=== PATIENT | female | born 1970 | race Caucasian/White ===

== ENCOUNTER 2025-02-12 12:55 | Outpatient (CLI) | payer OTHER, SELFPAY ==
--- OUTSIDE RECORDS SUMMARY | 2025-02-12 13:00 | XMS_ITS | Data Portability ---
Author Organization [facility] ANN MARIEErrol Address [address] [place] [address] Care Team Providers Care Recycling Director Name Role Phone FAM ALEXANDER Primary Care Provider Assessment Encounter Date Assessment Date Assessment LastModified by Organization Details LastModified Time 11/13/2024 11/13/2024 Labs completed 11/11/2024 Triglycerides 117, Cholesterol 136, HDL 56, LDL 59, CK 38, Sodium 141, Potassium 4.6, Chloride 102, Co2 26, BUN 23, Creatinine 1.55, eGFR 39, Glucose 95, Calcium 9.8, Bilirubin 0.5, AST 16, ALT 19, Protein 7.8, Albumin 4.4, ALk phos 87 Labs completed 10/03/2024 WBC 6.1, Hgb 13.5, Hct 41.5, Plt 203 Labs completed on 02/27/2024 Sodium 140, Potassium 4.6, Chloride 102, Co2 28, BUN 20, Creatinine 1.24, Glucose 92, Calcium 9.4, Albumin 4.2, WBC 6.2, Hgb 14.6, Platelets 191, HgbA1C 5.6 Labs completed on 12/18/2023 Cholesterol 195, Trig 116, HDL 42, LDL 132 ECG done on 03/20/2024 shows sinus rhythm with a rate of 73 beats per minute, left atrial enlargement, IVCD ASSESSMENT History of coronary artery disease status post coronary artery stent in November of 2021 in [facility] with a normal Lexiscan Myoview stress test done on 06/11/2024. Dyspnea on exertion with moderate activity With a normal Lexiscan Myoview stress test performed on 05/11/2024. Essential hypertension, controlled History of thoracic aortic dissection status post repair in 2020 in [place] Diastolic dysfunction grade 1. Trace to mild pulmonic valvular regurgitation by echocardiogram done on 04/02/2024 Aortic sclerosis without significant stenosis on echocardiogram done on 04/02/2024 Mitral sclerosis, moderate without significant stenosis on echocardiogram done on 04/02/2024 Chronic kidney disease followed by Nephrology. Occasional Cannabis use Reformed smoker smoked one - two ppd and quit about 2 years ago pure hypercholesterolem ia, on rosuvastatin 20 mg daily with LDL at goal as her goal LDL is to be under 70 mg/dL in light of CAD Peripheral neuropathy in her right leg so she can not walk on a treadmill. History of angioedema with lisinopril so I will avoid ASCENCION inhibitors and ARBs PLAN: I recommend she follow a low-fat low-sodium low-cholesterol diet. I asked her to try to exercise regularly and try to lose some weight. I am still trying to get a copy of her surgical report for her repair of her dissection in July of 2021 I and a copy of her catheterization report from [facility] from November of 2021 to see if she had an aortic stent graft or had a coronary stent I asked her to continue on rosuvastatin 20 mg daily, amlodipine 5 mg daily, carvedilol 6.25 mg twice daily and aspirin 81 mg daily. I would like her to return in 6 months' time in obtain a fasting lipid profile, complete metabolic profile and a CBC prior to her follow-up visit. I asked her to return sooner if she has any cardiac issues or problems. CARDIAC TESTING: ECHOCARDIOGRAM 04/02/24. Mildly dilated left atrium. Osjl-rr-dnvhtuth concentric left ventricular hypertrophy. LV ejection fraction, visually, 60 65%. Diastolic dysfunction grade 1. Resting segmental wall motion annulus total wall motion score is 1.00 there is no regional wall motion abnormalities. Normal right ventricular size and systolic function. Moderate mitral annular calcification. There is no evidence of mitral valve prolapse. There is no evidence of mitral valve stenosis. The mean transmitral gradient is 1 mmHg. Aortic valve not well visualized. Aortic cusp appears mildly calcified. Mild aortic valve regurgitation. There is no evidence of aortic valve stenosis. Trace to mild pulmonic valvular regurgitation. Trace anterior echo-free space, Most likely represents a fat pad can not exclude a trivial pericardial effusion. The IVC was<2.1 cm and collapsibility.50 %. The RA pressure is estimated to be 3 mmHg. ECHOCARDIOGRAM 08/12/2019 left ventricular cavity size is within normal limits ejection fraction visually estimated at 55%, severe eccentric left ventricular hypertrophy, no regional wall motion abnormalities, diastolic dysfunction grade 1 LEXISCAN MYOVIEW STRESS TEST 06/11/2024, no regadenoson induced ischemic EKG changes, no arrhythmias, study as well tolerated, blood pressure was elevated but patient did not take her medicines that day. Her Myoview images showed no evidence of ischemia or infarction of the left ventricle, normal left ventricular cavity size, normal wall motion, normal TID index and calculated left ventricular systolic ejection fraction of 55%. Not available 11/13/2024 14:50:02 Plan of Treatment Reminders Order Date Submit Date Provider Last Modified By Organization Details Last Modified Time Details Appointments ANY 15 2024 01:15P Krysta Chaidez MD Not available Not available Not available Lab unlisted lab - vitamin D, 25-hydrox y 2024 025 [email or web address] [facility] ([facility]), [address] [place], [address], 11/26/2024 16:00:53 unlisted lab - vitamin D, 25-hydrox y 2024 025 [email or web address] [facility] ([facility]), [address] [facility], [place], [address], 01/30/2025 16:48:47 CBC 2024 025 [email or web address] [facility] ([facility]), [address] [place], [address], 11/26/2024 16:00:53 CMP, serum or plasma 2024 025 [email or web address] [facility] (Lab), [address] [place], [address], 11/26/2024 16:00:53 phosphoru s, serum or plasma 2024 025 [email or web address] [facility] ([facility]), [address] [place], [address], 11/26/2024 16:00:53 PTH (parathyr oid hormone), intact + calcium, serum or plasma 2024 025 [email or web address] [facility] (Lab), [address] [place], [address], 11/26/2024 16:06:38 lipid panel, serum 2024 025 [email or web address] [facility] (Lab), [address] [place], [address], 11/13/2024 14:50:03 CMP, serum or plasma 2024 025 [email or web address] [facility] ([facility]), [address] [place], [address], 11/13/2024 14:50:03 CBC w/ auto diff 2024 025 [email or web address] [facility] ([facility]), [address] [place], [address], 11/13/2024 14:50:[address] referral 2024 025 [facility] (Audiology), [facility] [address], [address], 01/27/2025 18:27:14 dermatolo gist referral 2024 025 [facility], [address] [place], [address], 01/24/2025 12:10:31 physical therapist referral 2024 025 [facility], [address], [place], [address], 12/17/2024 14:02:19 otolaryng ologist referral [email or web address] [place] [address], [address], [place], [address], 12/11/2024 15:54:[address] referral 2024 025 [email or web address] [facility] (Audiology), [address], [place], [address], 12/11/2024 15:54:56 intensive outpatien t therapy program referral [address] (Social Serv), [address] [place], [address], 12/11/2024 16:00:49 Procedures None recorded. Surgeries None recorded. Imaging MAMMO, screening , bilateral [email or web address] [place] [address] (Cardio Ekg), [address] [place], [address], 02/06/2025 09:12:57 Medication Orders lidocaine 5 % topical patch 2024 025 [facility] [id number], [address], 12/11/2024 15:54:22 clobetaso l 0.05 % topical ointment 2024 025 [facility] [address], [address], 12/11/2024 15:54:23 ergocalci ferol (vitamin D2) 1,250 mcg (50,000 unit) capsule 2024 025 [facility] [id number], [address], 11/26/2024 16:05:47 carvedilo l 12.5 mg tablet 2024 025 [facility] [address], [address], 11/26/2024 16:16:41 amlodipin e 10 mg tablet 2024 025 [facility] [address] In [facility], [address] [facility], [place], [address], 11/26/2024 16:16:41 Patient TargetsNo targets recorded. Patient Instructions Encounter Date Encounter Id Patient Instructions Last Modified By Organization Details Last Modified Time 11/13/2024 [id number] A healthy lifestyle: care instructions Not available 11/13/2024 14:50:03 12/11/2024 [id number] A healthy lifestyle: care instructions Not available 12/11/2024 15:54:20 01/21/2025 [id number] A healthy lifestyle: care instructions Not available 01/21/2025 16:36:59 Reason for Referral Brick Pitcher Referral fo r Hearing loss of right ear Referring Physician: Alexander Larios [facility], Encounter Date: 12/11/2024 Review Coordinator Referral for Hea ring loss of right ear Referring Physician: Alexander Larios [facility], Encounter Date: 12/11/2024 Physical Therapist Referral for Chronic low back pain Referring Physician: Alexander Larios [facility], Encounter Date: 12/11/2024 Intensive Outpatient Therapy Program Referral for Generalized anxiety disorder Referring Physician: Alexander Larios [facility], Encounter Date: 12/11/2024 Office Service Coordinator Referral for P soriasis Referring Physician: Alexander Larios [facility], Encounter Date: 01/21/2025 Review Coordinator Referral for Asy mmetrical hearing loss Referring Physician: Amarjit Moreno Otolaryngology, Encounter Date: 01/27/2025 Results Created Date Observation Date Name Description Value Unit Range Abnormal Flag Note LastModifiedBy Organization Detail LastModifiedTime 11/12/19 25 11/11/2024 COMPR EHENS JOSE METAB OLIC PANEL sodium 141 mmol/ L 134-14 4 normal Not Available [facility] (Lab) [address] [place], [address], 11/11/2024 22:47:50 11/12/19 25 11/11/2024 COMPR EHENS JOSE METAB OLIC PANEL potassium 4.6 mmol/ L 3.5-5. 2 normal Not Available [facility] ([facility]) [address] [place], [address], 11/11/2024 22:47:50 11/12/19 25 11/11/2024 COMPR EHENS JOSE METAB OLIC PANEL chloride 102 mmol/ L 96-106 normal Not Available [facility] (Lab) [address] [place], [address], 11/11/2024 22:47:50 11/12/19 25 11/11/2024 COMPR EHENS JOSE METAB OLIC PANEL carbon dioxide 26 mmol/ L 20-29 normal Not Available [facility] (Lab) [address] [place], [address], 11/11/2024 22:47:50 11/12/19 25 11/11/2024 COMPR EHENS JOSE METAB OLIC PANEL anion gap 17.0 mmol/ L Not Available [facility] (Lab) [address], [place], [address], 11/11/2024 22:47:50 11/12/19 25 11/11/2024 COMPR EHENS JOSE METAB OLIC PANEL blood urea nitrogen 23 mg/dL 6-24 normal Not Available [facility] ([facility]) [address] [place], [address], 11/11/2024 22:47:50 11/12/19 25 11/11/2024 COMPR EHENS JOSE METAB OLIC PANEL creatinine 1.55 mg/dL 0.76-1 .27 high Not Available [facility] (Lab) [address] [place], [address], 11/11/2024 22:47:50 11/12/19 25 11/11/2024 COMPR EHENS JOSE METAB OLIC PANEL glomerular filtration rate 39 mL/mi n/1 Not Available [facility] (Lab) [address] [place], [address], 11/11/2024 22:47:50 11/12/19 25 11/11/2024 COMPR EHENS JOSE METAB OLIC PANEL BUN creatinine ratio 15 9-23 normal Not Available [facility] (Lab) [address] [place], [address], 11/11/2024 22:47:50 11/12/19 25 11/11/2024 COMPR EHENS JOSE METAB OLIC PANEL glucose 95 mg/dL 70-99 normal Not Available [facility] (Lab) [address] [place], [address], 11/11/2024 22:47:50 11/12/19 25 11/11/2024 COMPR EHENS JOSE METAB OLIC PANEL osmolality calculated 285 275-29 5 normal Not Available [facility] (Lab) [address] [facility], [place], [address], 11/11/2024 22:47:50 11/12/19 25 11/11/2024 COMPR EHENS JOSE METAB OLIC PANEL calcium 9.8 mg/dL 8.7-10 .2 normal Not Available [facility] (Lab) [address] [place], [address], 11/11/2024 22:47:50 11/12/19 25 11/11/2024 COMPR EHENS JOSE METAB OLIC PANEL bilirubin total 0.5 mg/dL 0.0-1. 2 normal Not Available [facility] (Lab) [address] [place], [address], 11/11/2024 22:47:50 11/12/19 25 11/11/2024 COMPR EHENS JOSE METAB OLIC PANEL AST aspartate aminotransfe rase 16 U/L 0-40 normal Not Available [facility] (Lab) [address] [place], [address], 11/11/2024 22:47:50 11/12/19 25 11/11/2024 COMPR EHENS JOSE METAB OLIC PANEL ALT (alanine aminotransfe rase) 19 IU/L 0-32 normal Not Available [facility] (Lab) [address], [place], [address], 11/11/2024 22:47:50 11/12/19 25 11/11/2024 COMPR EHENS JOSE METAB OLIC PANEL total protein 7.8 g/dL 6.0-8. 5 normal Not Available [facility] (Lab) [address], [place], [address], 11/11/2024 22:47:50 11/12/19 25 11/11/2024 COMPR EHENS JOSE METAB OLIC PANEL albumin level 4.4 g/dL 3.8-4. 9 normal Not Available [facility] (Lab) [address], [place], [address], 11/11/2024 22:47:50 11/12/19 25 11/11/2024 COMPR EHENS JOSE METAB OLIC PANEL globulin 3.4 g/dL 1.5-4. 5 normal Not Available [facility] (Lab) [address], [place], [address], 11/11/2024 22:47:50 11/12/19 25 11/11/2024 COMPR EHENS JOSE METAB OLIC PANEL albumin globulin ratio 1.0 1.2-2. 2 low Not Available [facility] (Lab) [address] [place], [address], 11/11/2024 22:47:50 11/12/19 25 11/11/2024 COMPR EHENS JOSE METAB OLIC PANEL alkaline phosphatase 87 IU/L 44-121 normal Not Available [facility] (Lab) [address] [place], [address], 11/11/2024 22:47:50 11/12/19 25 11/11/2024 COMPR EHENS JOSE METAB OLIC PANEL hemolysis 6 0-19 Not Available [facility] (Lab) [address] [place], [address], 11/11/2024 22:47:50 11/12/19 25 11/11/2024 COMPR EHENS JOSE METAB OLIC PANEL icterus 1 0.5-4. 9 Not Available [facility] ([facility]) [address] [place], [address], 11/11/2024 22:47:50 11/12/19 25 11/11/2024 COMPR EHENS JOSE METAB OLIC PANEL lipemia 13 0-99 Not Available [facility] ([facility]) [address] [place], [address], 11/11/2024 22:47:50 11/12/19 25 11/11/2024 CREAT INE KINAS E creatine kinase 38 U/L 32-182 normal Not Available [facility] ([facility]) [address] [place], [address], 11/11/2024 22:47:51 11/12/19 25 11/11/2024 LIPID PANEL triglyceride s 117 mg/dL 0-149 normal Not Available [facility] ([facility]) [address] [facility], [place], [address], 11/11/2024 22:47:52 11/12/19 25 11/11/2024 LIPID PANEL cholesterol 136 mg/dL 100-19 9 normal Not Available [facility] (Lab) [address] [place], [address], 11/11/2024 22:47:52 11/12/19 25 11/11/2024 LIPID PANEL LDL cholesterol 59 mg/dL 0-99 normal Not Available [facility] ([facility]) [address] [place], [address], 11/11/2024 22:47:52 11/12/19 25 11/11/2024 LIPID PANEL VLDL cholesterol (calc) 23 mg/dL 5-40 normal Not Available [facility] ([facility]) [address] [facility], [place], [address], 11/11/2024 22:47:52 11/12/19 25 11/11/2024 LIPID PANEL HDL cholesterol 56 mg/dL 40-999 normal Not Available [facility]) [address] [facility], [place], [address], 11/11/2024 22:47:52 11/12/19 25 11/11/2024 LIPID PANEL LDL HDL ratio 1.1 0-3.2 normal Not Available [facility]) [address] [facility], [place], [address], 11/11/2024 22:47:52 11/12/19 25 11/11/2024 LIPID PANEL chol HDL ratio 2.0 mg/dL 0-4.4 normal Not Available [facility] ([facility]) [address] [place], [address], 11/11/2024 22:47:52 11/27/19 25 11/26/2024 XR, chest , 2 view No observ ation record ed. [facility] [address] [place], [address], 11/27/2024 10:18:03 11/27/19 25 11/26/2024 CT, angio gram, chest , w/o contr ast No observ ation record ed. [facility] [address] [facility], [place], [address], 11/27/2024 10:17:37 11/29/19 25 11/26/2024 rhyth m strip , EKG* No observ ation record ed. [email or web address] [facility] [address] [place], [address], 12/03/2024 15:50:58 Result Notes None recorded. Problems Name Problem SNOMED Code Status Onset Date Resolution Date Notes Provider Name and Address Organization Details Recorded Time Essential hypertensio n 73472496 Active 2023 Francesco Rosa MD Attn: Michael heart,[address] [facility], [place], [address], [place] - [facility] 4 16:36:52 Aneurysm 801511860 Active 2023 Francesco Rosa MD Attn: Michael heart,[address] [facility], [place], [address], [place] [facility] 4 16:38:22 History of repair of dissecting thoracic aortic aneurysm 1823610328730 05 Active 2023 Darcy Chaidez MD Attn: Michael heart,[address] [facility], [place], [address], [place] [facility] 4 10:05:22 Vitamin D deficiency 94524416 Active 2023 Alexander Larios PA-C Attn: Marcellalynda heart,[address] [facility], [place], [address], [place] [facility] 4 14:45:01 Generalized anxiety disorder 02622989 Active 2023 Alexander Larios PA-C Attn: Michael heart,[address] [facility], [place], [address], [place] [facility] 5 16:00:16 Diastolic dysfunction 3503327 Active 2023 Alexander Larios PA-C Attn: Michael heart,[address] [facility], [place], [address], [place] [facility] 4 14:49:58 Dyspnea on exertion 09670996 Active 2023 Darcy Chaidez MD Attn: Marcellalynda heart,[address] [facility], [place], [address], [place] [facility] 4 10:28:33 Pulmonic valve regurgitati on 15540022 Active 2023 Darcy Chaidez MD Attn: Michael una,[address] [facility], [place], [address], [place] [facility] 4 10:28:34 Mitral valve annular calcificati on 618077952 Active 2023 Darcy Chaidez MD Attn: Michael heart,[address] [facility], [place], [address], [facility] - [facility] 4 10:28:34 Aortic valve sclerosis 92478562 Active 2023 Darcy Chaidez MD Attn: Michael heart,[address] [facility], [place], [address], [facility] - [facility] 4 10:28:35 Pure hypercholes terolemia 790567440 Active 2023 Darcy Chaidez MD Attn: Michael heart,[address] [facility], [place], [address], [facility] - [facility] 4 11:07:17 Psoriasis 8235057 Active 2024 Alexander Larios PA-C Attn: Michael heart,[address] [facility], [place], [address], [facility] - [facility] 5 15:42:01 Problem Notes None recorded. Procedures Surgical History Date Name Laterality Status Provider Name and Address Organization Details Recorded Time 12/06/19 21 aneurysmectomy with graft replacement of thoracic artery completed VERONA ORR DO Attn: Accounting,[address] [facility], [place], [address], [facility] - SI 12/15/2023 14:28:25 12/05/18 97 section completed VERONA ORR DO Attn: Accounting,[address] [facility], [place], [address], [facility] - [facility] 12/15/2023 14:26:58 12/05/18 92 section completed VERONA ORR DO Attn: Accounting,[address] [facility], [place], [address], [facility] - [facility] 12/15/2023 14:26:40 12/05/18 88 arthroplasty of knee completed VERONA ORR DO Attn: Accounting,[address] [facility], [place], [address], [facility] - SI 12/15/2023 14:27:16 Imaging Results None recorded. Procedure Notes None recorded. Medical Equipment None Reported. Allergies Allergen ID Allergen Name Allergen Category Reaction Reaction Severity Criticality Documentation Date Start Date Code Code System Note Provider Name and Address Organization Details Recorded Time 759533 heparin medicatio n Not available Not available [facility] 12/15/2023 5224 RxNorm HIT VERONA DO KIRBY Attn: Accountin g,[address] [facility], [place], [address], [place] - [facility] 4 14:23:59 035668 Product containin g angiotens in-conver ting enzyme inhibitor (product) medicatio n angioedem a severe high 12/15/2023 34782 009 SNOMED VERONA ORR DO Attn: Accountin g,[address] [facility], [place], [address], [facility] - SI 4 14:24:25 392729 lisinopri l medicatio n Not available Not available Not available 01/30/2024 34376 RxNorm Hans Couch MA null, [place] - [place] 4 16:27:00 826832 Product containin g penicilli n (product) medicatio n Not available Not available Not available 01/30/2024 05545 8001 SNOMED ONEAL [place], [place] - [facility] 4 16:27:07 Medications Name Sig Start Date Stop Date Status Note LastModified by Organization Details LastModified Time Miralax 17 gram/dose oral powder In a pitcher, mix entire bottle of Miralax in one 64 ounce bottle of yellow or green Gatorade. Beginning at 5:00 PM the evening before the colonosco py, drink 1 8-ounce glass every 15 minutes until completed . Drink 4 glasses of water after finishing this mixture 11/13 completed Not Available Not Available Not Available clonidine HCl 0.1 mg tablet TAKE 1 TABLET 3 TIMES A DAY BY ORAL ROUTE. active Not Available Not Available No t Available carvedilol 6.25 mg tablet TAKE 1 TABLET BY MOUTH TWICE A DAY active Not Available Not Available No t Available doxycycline hyclate 100 mg capsule TAKE 1 CAPSULE BY MOUTH TWICE A DAY FOR 7 DAYS 11/13 completed Not Available Not Available Not Available carvedilol 12.5 mg tablet TAKE 1 TABLET TWICE A DAY BY ORAL ROUTE FOR 90 DAYS. active Not Available Not Available No t Available cetirizine 10 mg tablet TAKE 1 TABLET BY MOUTH EVERY DAY active Not Available Not Available No t Available amlodipine 5 mg tablet TAKE 1 TABLET BY MOUTH EVERY DAY 11/27 completed Not Available Not Available Not Available nifedipine ER 60 mg tablet,exte nded release 24 hr Take 1 tablet every day by oral route. 03/20 completed Not Available Not Available Not Available amlodipine 10 mg tablet TAKE 1 TABLET BY MOUTH EVERY DAY IN THE EVENING FOR 90 DAYS active Not Available Not Available No t Available lidocaine 5 % topical patch APPLY 1 PATCH BY TOPICAL ROUTE ONCE DAILY (MAY WEAR UP TO 12HOURS.) active Not Available Not Available No t Available hydroxyzine HCl 25 mg tablet TAKE 1 TABLET BY MOUTH THREE TIMES A DAY 2024 active Not Available Not Available Not Avai lable ergocalcife rol (vitamin D2) 1,250 mcg (50,000 unit) capsule TAKE 1 CAPSULE BY MOUTH ONCE A MONTH IN THE MORNING X90 DAYS SUPPLY active Not Available Not Available No t Available clobetasol 0.05 % topical ointment APPLY THIN COAT TO AFFECTED AREA TWICE A DAY active Not Available Not Available No t Available hydroxyzine HCl 10 mg tablet TAKE 1 TABLET 3 TIMES A DAY BY ORAL ROUTE NEEDED. 04/23 completed Not Available Not Available Not Available fluoxetine 20 mg capsule TAKE 1 CAPSULE BY MOUTH EVERY DAY 03/20 completed Not Available Not Available Not Available fluticasone propionate 50 mcg/actuati on nasal spray,suspe nsion INSTILL 2 SPRAYS BY INTRANASA L ROUTE EVERY DAY active Not Available Not Available No t Available betamethaso ne dipropionat e 0.05 % lotion APPLY A FEW DROPS TO AFFECTED AREA, RUB IN GENTLY AND COMPLETEL Y, 2 TIMES A DAY MORNING AND BEDTIME 2024 active Not Available Not Available Not Avai lable Laxative (bisacodyl) 5 mg tablet,tameka yed release TAKE ALL 4 TABLETS AT 2PM OF DULCOLAX BY MOUTH AT ONE TIME WITH 8 OUNCES OF WATER 11/13 completed Not Available Not Available Not Available rosuvastati n 20 mg tablet TAKE 1 TABLET BY MOUTH EVERY DAY active Not Available Not Available No t Available aspirin One tab qd active Not Available Not Available No t Available Vitals Date Recorded Body height Body mass index (BMI) Body weight Heart rate Oxygen saturation Oxygen saturation in Arterial blood by Pulse oximetry Systolic And Diastolic Provider Name and Address Organization Details Last Updated DateTime 5 157.48 cm 39.7 kg/m2 04776.5 4 g 77 /min 97 % 97 % 126/74 mm[Hg] Abhishek Singer MA [facility] 14:19:16 Date Recorded Body height Oxygen saturation Oxygen saturation in Arterial blood by Pulse oximetry Heart rate Respiratory rate Body mass index (BMI) Body weight Provider Name and Address Organization Details Last Updated DateTime 5 157.48 cm 89 % 89 % 71 /min 20 /min 40.9 kg/m2 417982. 97 g Francesco Rosa MD Attn: Michael heart,[address] [place], [address], [facility] 5 15:07:54 Date Recorded Body height Body mass index (BMI) Body weight Oxygen saturation Oxygen saturation in Arterial blood by Pulse oximetry Heart rate Respiratory rate Body temperature Systolic And Diastolic Provider Name and Address Organization Details Last Updated DateTime 5 157.48 cm 41.4 kg/m2 282707. 28 g 97 % 97 % 74 /min 20 /min 97.4 [degF] 124/80 mm[Hg] Blanca Obando MA [facility] 5 15:34:43 Date Recorded Body height Provider Name an d Address Organization Details Last Updated DateTime 01/21/2025 157.48 cm Blanca Obando MA [facility] 01/21 12:27:27 Date Recorded Body height Body mass index (BMI) Body weight Heart rate Respiratory rate Body temperature Systolic And Diastolic Provider Name and Address Organization Details Last Updated DateTime 5 157.48 cm 41.9 kg/m2 328874. 29 g 74 /min 16 /min 98.4 [degF] 99/67 mm[Hg] Sara Giles MA [facility] 12:39:11 Social History Question Answer Notes LastModified by Organizat ion Details LastModified Time Tobacco Smoking Status Former Smoker cigars Ivan[place] 03/20/2024 09:13:53 Do You Have An Advance Directive? No Information n ot available 01/30/2024 What Is Your Level Of Caffeine Consumption? None Information not available 03/20/2024 In The 14 Days Before Symptom Onset, Have You Had Close Contact With A Laboratory-confirm ed COVID-19 While That Case Was Ill? No Information n ot available 10/03/2024 In The 14 Days Before Symptom Onset, Have You Had Close Contact With A Person Who Is Under Investigation For COVID-19 While That Person Was Ill? No Information not available 10/03/2024 Have You Been To An Area Known To Be High Risk For COVID-19? No Information not available 10/03/2024 What Type Of Diet Are You Following? DIABETIC Information n ot available 10/03/2024 What Is The Highest Grade Or Level Of School You Have Completed Or The Highest Degree You Have Received? [id number] Information not available 10/03/2024 Do You Have A Medical Power Of [place] Room Worker? No Information not available 01/30/2024 What Was The Date Of Your Most Recent Tobacco Screening? 11/13/2024 [email or web address] Information not available 11/13/2024 What Is Your Current Pack Years? 10packyears Information not available 03/20/2024 Do You Have Smoke And Carbon Monoxide Detectors In Your Home? Yes Information not available 10/03/2024 At What Age Did You Start Smoking Tobacco? 11 Information not available 03/20/2024 Are You Passively Exposed To Smoke? No Information no t available 10/03/2024 How Much Tobacco Do You Smoke? No Information not available 03/20/2024 On What Date Was Tobacco Cessation Counseling Provided? 11/26/2024 Information not available 11/26/2024 How Many Years Have You Smoked Tobacco? 40 Information not available 03/20/2024 Sex: Female Functional Status Question Answer Note LastModified by Organizat ion Details LastModified Time Do you use any illicit or recreational drugs? No Information not available 03/20/2024 Do you or have you ever used any other forms of tobacco or nicotine? No Information not available 03/20/2024 What is your level of alcohol consumption? None Information not available 03/20/2024 Are you currently employed? No Information not available 11/26/2024 What is your exercise level? None Information not available 10/03/2024 Mental Status None recorded. Family History Relationship Description Onset Age of this Age Resolved Age Notes LastModified by Organization Details LastModified Time Sister Monitoring of pacemaker [email or web address] Not available 09:13:25 Medical History No medical history recorded. Gynecological HistoryNo gynecological history recorded. Obstetrics History GPAL:G 0 P 0 0 0 0 Past Encounters Encounter ID Performer Location Encounter Start Date Encounter Closed Date Diagnosis/Indication Diagnosis SNOMED-CT Code Diagnosis ICD10 Code Diagnosis Note [id number] VERONA ORR DO [facility] (Adult Med) [address] [place] [address] 12/15/2023 13:47:00 12/18/2023 10:14:08 History of repair of dissecting thoracic aortic aneurysm 2564827154 03548 Z86.79 In 2020. Pt states she was following with cardiology prior to moving here and denies any red flag s/s. Will refer to new cardiologi st. Release of records filled out. Chronic ki dney disease 780867001 N18.9 Likely 2/2 HTN. Release of records filled out. Pt states she was previously managed by a nephrologi st but needs a new one since moving. Referral placed. Essential hypertension 21578730 I10 Chronic, managed with coreg and nifedipine . Has been out of medication . BP elevated today. No red flag s/s. Due for labs.- Labs ordered as below- Medication s refilled. Pt told to restart them today and strict ER precaution s discussed- <2,000 mg sodium per day and 150 mins moderate intensity exercise per week- Follow up in one month Screening for malignant neoplasm of colon 709653199 Z12.11 No prior screenings . Upon discussion of options for screenings pt states she would like to postpone conversati on until she 'gets settled' in the area. Screening for malignant neoplasm of cervix 642568798 Z12.4 Unsure when last pap was. Release of records filled out. Pt declined pap at this time stating she would like to wait until she 'gets settled' in the area. Positive s creening for depression on PHQ-9 (Patient Health Questionnaire 9) 4567558230 33299 Z13.31 No SI/HI. Referred to . [id number] Francesco Rosa MD [facility] ([facility]) [address] [place] [address] 01/30/2024 15:35:01 02/01/2024 11:04:34 Chronic kidney disease stage 3 224044523 N18.30 Pt appears to have ckd3 prob sec to underlying h/o htn.PE sunremarka ble from renal standpoint Pt has h/o dissecting aneurysm with repair 2020. Essential hypertension 94897434 I10 bp controlled .cont Coreg,pt not taking Nifedipine Monitor bp at home,if sbp elevated(a dagoberto 140mmhg) then rec increasunf g dose of Carvedilol to 12.5mg bid.;ow salt diet. Hyperlipidemia 70082908 E78.5 pt to see PCP soon. [id number] VERONA ORR DO [facility] (Adult Med) [address] [place] [address] 02/05/2024 12:34:06 02/07/2024 14:06:04 Essential hypertension 05193097 I10 Chronic, managed with coreg and nifedipine but nephrology discontinu ed nifedipine . BP elevated today. Home BP 130s/80s. No red flag s/s. UTD on labs.- Continue with coreg given normal home BP- <2,000 mg sodium per day and 150 mins moderate intensity exercise per week- Follow up in one month Anxiety 12276760 F41.9 Chronic X2 years. No SI/HI. Cannot calm herself down when in public spaces.- Discussed counseling - pt would like to defer at this time- Start fluoxetine 20 mg qd- ER precaution s discussed- Follow up in one mo [id number] Darcy Chaidez MD [facility] [place] [facility] [address] [place] [address] 03/20/2024 08:59:52 03/22/2024 14:32:09 Essential hypertension 29578892 I10 History of repair of dissecting thoracic aortic aneurysm 8826895712 26681 Z86.79 Diastolic dysfunction 35 49167 I51.9 Ex-smoker 9248350 Z87.89 1 [id number] Jai Pa MD [facility] (Adult Med) [address] [place] [address] 03/20/2024 13:46:29 03/24/2024 15:02:28 Essential hypertension 09009142 I10 [id number] Darcy Chaidez MD [facility] [place] [facility] [address] [facility] [place] [address] 04/17/2024 09:40:16 04/19/2024 11:47:41 Diastolic dysfunction 3742942 I51.9 Essential hypertension 89080335 I10 History of repair of dissecting thoracic aortic aneurysm 9792621166 18170 Z86.79 Aortic carlos ve sclerosis 64226970 I35.8 Mitral carlos ve annular calcification 030359808 I34.81 Pulmonic v alve regurgitation 93163297 I37.1 Dyspnea on exertion 6084 5006 R06.09 [id number] Enmanuel Frost MD [facility] (Adult Med) [address] [place] [address] 03/21/2024 13:52:37 03/22/2024 12:25:10 Vitamin D deficiency 43195860 E55.9 Screening mammography 24 530422 Z12.31 mammogram orderedpat ient will scedule for well woman exam Screening for malignant neoplasm of colon 875191764 Z12.11 refused colonoscop y Essential hypertension 25091635 I10 on coreg 6.25mg bidmanaged by Dr. Chaidez cardiologi Generalize sam anxiety disorder 34083988 F41.1 several year history since having the repair of dissecting thoracic aortic aneuysm which is now managed by cardiologi sttried fluoxetine with no reliefpati ent requesting to try hydroxyzin esent 10mg tid prnfollow up in 1month or sooner if problems arise History of repair of dissecting thoracic aortic aneurysm 0494984807 75357 Z86.79 in 2020manage d by cardiologwil mcmillan [id number] Francesco Rosa MD [facility] ([facility]) [address] [place] [address] 04/16/2024 10:23:31 04/25/2024 09:07:31 Chronic kidney disease stage 3 825927522 N18.30 Pt appears to have ckd3 prob sec to underlying h/o htn.PE unremarkab le from renal standpoint Pt has h/o dissecting aneurysm with repair 2020.creat stable/imp roved. vit d deiciency noted,pt on vit d supplement .pth wnl/cbc unremarkab le. ua abnl with ketones/bl ood/biliru bin. Essential hypertension 43076252 I10 bp high today,pt did not take this am blood pressure medication . per pt bp nl at home(130/7 0 -80)Monito r bp at home,if sbp elevated(a dagoberto 140mmhg) then rec increasing dose of Carvedilol .;low salt diet. Vitamin D deficiency 347 98223 E55.9 cont vit d supplement 88483 units po weekly for 90 days , will repeat level then and adjust accordingl y..[place] [address] units po monthly after 12 weekly dose. [id number] Enmanuel Frost MD [facility] ([facility] [address] [place] [address] 04/23/2024 10:17:27 04/24/2024 12:51:49 Body mass index 30+ - obesity 766130548 Z68.30 Obesity 402553182 E66.8 Essential hypertension 76846200 I10 on coreg 6.25mg bidmanaged by Dr. Chaidez cardiologwil mcmillan Generalize d anxiety disorder 63423098 F41.1 several year history since having the repair of dissecting thoracic aortic aneuysm which is now managed by cardiologi tried fluoxetine with no reliefpati ent requesting increase dosage of hydroxyzin esent 25mg tid prnfollow up in 1month or sooner if problems arise History of repair of dissecting thoracic aortic aneurysm 6455342943 21595 Z86.79 in 2020manage d by cardiologi st Psoriasis 6540505 L40.9 on face and scalpwill trial with betamethas one and refer to derm [id number] Darcy Chaidez MD [facility] [place] [facility] [address] [facility] [address] 06/18/2024 10:05:47 06/20/2024 10:50:48 Morbid obesity 988826363 E66.01 History of repair of dissecting thoracic aortic aneurysm 5373383009 58566 Z86.79 Mitral carlos ve annular calcification 044352812 I34.81 Essential hypertension 60131578 I10 Dyspnea on exertion 6084 5006 R06.09 Diastolic dysfunction 35 45402 I51.9 Aortic carlos ve sclerosis 08823847 I35.8 Pure hypercholesterolemia 305377458 E78.00 [id number] [facility] [address] [address] 10/03/2024 14:36:06 10/04/2024 09:21:07 Screening for malignant neoplasm of colon 339640103 Z12.11 Positive cologuard July 2024. No prior colonoscop y. No FH of colon cancer History of repair of dissecting thoracic aortic aneurysm 7803294960 05343 Z86.79 on baby aspirin daily. Will obtain cardiac clearance [id number] Enmanuel Frost MD [facility] (Adult Med) [address] [place] [address] 10/09/2024 15:43:18 10/11/2024 14:23:52 Body mass index 40+ - severely obese 906212593 Z68.42 Morbid obesity 113135884 E66.01 Acute sinusitis 68314374 J01.90 will send flonase, cetirizine and doxycyline supportive carepatien t to schedule in office visit for evaluation Colorectal cancer detected by DNA-based stool screening 156429352 R19.5 patient had positive cologuard on 07/15/24pen ding colonoscop y end of October 2024 at [facility] [id number] Darcy Chaidez MD [facility] [place] [facility] [address] [place] [address] 11/13/2024 14:09:03 11/14/2024 10:14:12 Morbid obesity 364247232 E66.01 Diastolic dysfunction 35 21799 I51.9 Dyspnea on exertion 6084 5006 R06.09 Essential hypertension 42853831 I10 History of repair of dissecting thoracic aortic aneurysm 5914518955 49689 Z86.79 Mitral carlos ve annular calcification 052084731 I34.81 Pure hypercholesterolemia 990604211 E78.00 Long-term current use of antiplatelet drug 8653884229 88219 Z79.02 [id number] Francesco Rosa MD [facility] ([facility]) [address] [place] [address] 11/26/2024 14:49:32 11/26/2024 16:07:27 Chronic kidney disease stage 3B 490654388 N18.32 Pt appears to have ckd3b prob sec to underlying h/o htn.PE unremarkab le from renal standpoint Pt has h/o dissecting aneurysm with repair 2020.creat at 1.5mg/dl,s lightly worse since 2023.. vit d deficiency notePTH/vi t D notedd,pt on vit d supplement .pth wnl(02/2024 )/cbc unremarkab l(09/2024). No recent PTH/vit d NOTED. Essential hypertension 88802139 I10 bp high today,SBOP IN 220S.iNCRE ASE DOSE OF aMLODIPINE TO 10 MG DAILYAdvis ed t o go to ER sec to high bp sbp over 220 mmhg Vitamin D deficiency 347 05621 E55.9 cont vit d supplement 50865 units po weekly for 90 days , will repeat level then and adjust accordingl y..[place] [address] units po monthly after 12 weekly dose. [id number] MD Anthony Griggs [facility] (Adult Med) [address] [place] [address] 12/11/2024 15:23:52 12/13/2024 10:06:36 Body mass index 40+ - severely obese 065038513 Z68.41 Obese class III 45794405 5 E66.813 Morbid obesity 506157511 E66.01 Psoriasis 1740634 L40.9 on face and scalp and backlittle relief with betamethas onewill send clobetasol derm referral already placedprov ided sample of zoryve to use once dailyfollo w up in 1month Screening mammography 24 344910 Z12.31 mammogram orderedpat ient will schedule for well woman exam Hearing lo ss of right ear 786350198 H91.91 referral to entreferra l to audiologis t Chronic low back pain 27 2661582 M54.50 G89.29 chronic painreferr al to PTlidocain patch sent to pharmacy Generalize d anxiety disorder 27853962 F41.1 several year history since having the repair of dissecting thoracic aortic aneuysm which is now managed by cardiologi sttried fluoxetine with no reliefno relief with hydroxyzin ereferral placed to IOP, [facility] to [facility] follow [facility] with psych at [facility] [id number] Enmanuel Frost MD [facility] (Adult Med) [address] [place] [address] 01/21/2025 12:16:09 01/22/2025 09:16:17 Body mass index 40+ - severely obese 586278409 Z68.41 Obese class III 35336855 5 E66.813 Morbid obesity 548385563 E66.01 Psoriasis 8259244 L40.9 on face and scalp and backlittle relief with [facility]amethas [facility] clobet[facility] derm referralno relief with zoryve Hearing lo ss of right ear 093107185 H91.91 referral to entreferra l to audiologis t Chronic low back pain 27 5507791 M54.50 G89.29 chronic painreferr al to PTlidocain patch sent to pharmacy Generalize d anxiety disorder 54858599 F41.1 several year history since having the repair of dissecting thoracic aortic aneuysm which is now managed by cardiologi sttried fluoxetine with no reliefno relief with hydroxyzin ereferral placed to IOP, [facility], instructed patient to schedule follow up with psych at [facility] [id number] Amarjit Moreno MD [facility] [address] [facility] [place] [address] 01/27/2025 12:26:27 01/27/2025 14:19:39 Asymmetrical hearing loss 330626483 H91.8X3 follow-up after audiogram Health Concerns Section Related Observation LastModified by Organization Detai ls LastModified Time None Recorded Concern Status LastModified by Organization Details LastModified Time None Recorded Advance Directives Directive N: Payers Insurance Date Sequence Insurance Name Policy Number Policy Herman Covered Member ID Herman Member ID Guarantor Name 01/21/2025 1 [employer] [facility]TER [facility] OF [facility] ON OR AFTER 07/07/2020 (MEDICAID REPLACEMENT - HMO) Sonal Salomon [id number] Shira Flormarty Notes Date Note Type Note Provider Name and Address Organization Details Recorded Time 11/13/2024 text/html Ms. Salomon i s a 54 year old who returns for follow-up visit. At the time of her last visit I added amlodipine 5 mg daily due to her elevated blood pressure and added rosuvastatin 20 mg daily due to her suboptimal lipids which he is tolerating both with no side effects. Her blood pressure is now normal at 126/74 mm Hg LDL is at goal at 59 mg/dL. She tells me her blood pressure readings at home have been normal when she has checked them. She has not been doing any regular exercise. She follows a low-sodium diet and her weight is up 7 lb since her last visit about 5 months ago. He has continues to get some shortness of breath with moderate activity and no exertional chest pressure or pain. She no longer has any back pain since she had her stent implant in her coronary artery. She is compliant with her medications. She denies any chest pain, dizziness, syncope, orthopnea, paroxysmal nocturnal dyspnea, palpitations or lower extremity edema. 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.Renal us: rt kidney 10.3 cms.lt kidney 9.3 cmc with no hydro(02/2024) Francesco Rosa MD Attn: Accounting,[address] [facility], [place], [address], [facility] 11/26/2024 16:16:50 12/11/2024 text/html Back PainReporte d bypatient.Location:[facility] n is not radiating Quality:tingling Severity:same;moderate (5-7) Duration:chronic Onset/Timing:recurrent episode Context:overuse Aggravating Factors:movement/posit ioning;twisting;flexin g back;extending back Associated Symptoms:no fever; no weak limbs; no numbness of the legs/feet; no tingling; no incontinence; no shortness of breathEar Pain/InfectionReported bypatient.Location:[facility] right Onset/Timing:recurrent episode Duration:ongoing hearing loss Quality:no pain; no itching; no discharge from the ears Severity:no fever; does not limit daily activities; not interfering with work; not interfering with social activities; no difficulty understanding speech; does not require tv, radio at high volume; able to sleep during episodeGeneralized Anxiety DisorderReported bypatient.Onset/Timing :years Severity:moderate Associated Symptoms:difficulty controlling worry;excess anxiety;palpitations;s hortness of breath;high irritabilityNotes:trie d fluoxetine with no relief made it worsehydroxyzine not working, requesting alprazosomethingRash /Skin LesionReported bypatient.Location:[facility]; face; forehead; ear; back Quality:itchy;dry;flak ing;generalized Severity:moderate Duration:has noted for >3 months Onset/Timing:recurring Context:scratching Associated Symptoms:no fever; no cold symptoms; no nausea; no vomiting; no diarrhea; no urinary symptoms; no chills; no fatigue; no change in weightNotes:wanting to try a different cream, some relief with betametasone Alexander Larios PA-C Attn: Accounting,[address] [facility], [place], [address], [facility] 12/11/2024 17:18:36 01/21/2025 text/html Back PainReporte d bypatient.Location:[facility] n is not radiating Quality:tingling Severity:same;moderate (5-7) Duration:chronic Onset/Timing:recurrent episode Context:overuse Aggravating Factors:movement/posit ioning;twisting;flexin g back;extending back Associated Symptoms:no fever; no weak limbs; no numbness of the legs/feet; no tingling; no incontinence; no shortness of breathEar Pain/InfectionReported bypatient.Location:[facility] s of hearing right Onset/Timing:recurrent episode Duration:ongoing hearing loss Quality:no pain; no itching; no discharge from the ears Severity:no fever; does not limit daily activities; not interfering with work; not interfering with social activities; no difficulty understanding speech; does not require tv, radio at high volume; able to sleep during episodeGeneralized Anxiety DisorderReported bypatient.Onset/Timing :years Severity:moderate Associated Symptoms:difficulty controlling worry;excess anxiety;palpitations;s hortness of breath;high irritabilityNotes:trie d fluoxetine with no relief made it worsehydroxyzine not working, requesting alprazosomethingRash /Skin LesionReported bypatient.Location:[facility]; face; forehead; ear; back Quality:itchy;dry;flak ing;generalized Severity:moderate Duration:has noted for >3 months Onset/Timing:recurring Context:scratching Associated Symptoms:no fever; no cold symptoms; no nausea; no vomiting; no diarrhea; no urinary symptoms; no chills; no fatigue; no change in weightNotes:wanting to try a different cream, some relief with betametasone Alexander Larios PA-C Attn: Accounting,[address] [facility], [place], [address], [facility] 01/21/2025 16:37:22 01/27/2025 text/html patient complain ing of decreased hearing. She has had a problem for several months to years. She seems to think it is the right worse than left but she also feels she has pressure fluid in her right ear. She has worked in noisy environments in the past. Amarjit Moreno MD [address] [place], [address], [facility] 01/27/2025 12:49:34 OBGyn Episode No OBEpisode recorded.
== END 2025-02-12 12:56 | disposition home or self-care (01) ==
LOC: ANHAUDIO 12:57
PROVIDERS: PCP Otolaryngology; Visit Provider Otolaryngology
DX: H90.3 Sensorineural hearing loss, bilateral (principal); H74.8X1 Other specified disorders of right middle ear and mastoid
CPT/HCPCS: 92557; 92567